=== PATIENT | male | born 1980 | race Caucasian/White ===

== ENCOUNTER 2020-10-19 12:01 | Emergency (ER) | payer MEDICAID, OTHER ==
[~2020-10-19] VITALS: Ht 170.2 cm; Wt 77.1 kg
--- NOTE | 2020-10-19 13:08 | NUR ---
Patient is resting comfortably on gurney with eyes closed, easily arousable, respiration:easy, unlabored, even and symmetrical. Patient said that he can not provide urine sample at this time.
[2020-10-19] MEDS ORDERED: LIDOCAINE 2% (UROJET) 10 ML JELLY MM ONE ×2 (13:41→13:45)
[2020-10-19] MEDS ORDERED: MORPHINE SULFATE 4 MG/1 ML DISP.SYRIN IV ONE (13:45)
[2020-10-19] MEDS ORDERED: ONDANSETRON 4 MG/2 ML VIAL IV ONE (13:45)
[2020-10-19 14:11] LABS: HEMATOCRIT 40.2 % (36.7-47.1); MEAN CORPUSCULAR VOLUME 96.2 fL (73.0-96.2); PLATELET COUNT (AUTO) 231 K/uL (152-348)
[2020-10-19 14:19] LABS: *BILIRUBIN,URIN NEGATIVE (NEGATIVE); *BLOOD, URINE NEGATIVE (NEGATIVE); *CLARITY,URINE CLEAR (CLEAR); *COLOR,URINE YELLOW (YELLOW); *KETONES,URINE NEGATIVE (NEGATIVE); *UROBILINOGEN,URINE 0.2 E.U./dl (NORMAL); LEUKOCYTE ESTERASE ,URINE NEGATIVE (NEGATIVE); NITRITE, URINE NEGATIVE (NEGATIVE); UGLUCOSE NEGATIVE (NEGATIVE)
[2020-10-19 14:30] LABS: BACTERIA,URINE NONE SEEN /HPF (NONE SEEN); MUCUS,URINE FEW /LPF (0-FEW); RBC,URINE 0-3 /HPF (0-3); SPERM,URINE FEW /HPF (NONE SEEN); SQUAMOUS EPITHELIAL CELL,UR FEW /HPF (NONE SEEN); URINE AMORPHOUS PHOSPHATES FEW /HPF
[2020-10-19 14:30] LABS: BILIRUBIN,DIRECT 0.3 mg/dL (0.0-0.2); BILIRUBIN,TOTAL 1.4 mg/dL (0.2-1.0); POTASSIUM 3.2 mmol/L (3.5-5.1); TOTAL PROTEIN, SERUM 7.1 g/dL (6.4-8.2)
--- NOTE | 2020-10-19 14:38 | NUR ---
Patient refused in & out urine catherization as well, MD notified. Patient voided by urinal now, about 150ml dark yellow urine.
[2020-10-19] MEDS ORDERED: ONDANSETRON 4 MG/2 ML VIAL ONE (14:48)
[2020-10-19] MEDS ORDERED: MORPHINE SULFATE 4 MG/1 ML DISP.SYRIN ONE (14:48)
--- NOTE | 2020-10-19 15:12 | NUR ---
[email or web address].
--- NOTE | 2020-10-19 15:35 | NUR ---
Patient went to the bathroom and said "It came out." & MATTRESS FINISHER Ehsan notified.
--- NOTE | 2020-10-19 15:45 | NUR ---
Patient is preparing all his belongings and wants to go home. MD notified.
--- NOTE | 2020-10-19 15:47 | NUR ---
Patient discharged to home in stable condition with brisk steady gait. Written and verbal after care instructions given to patient. Patient verbalized understanding & compliance of instructions. Stressed follow up with primary doctor or return to ER for worsening s/s.
--- NOTE | 2020-10-19 15:48 | NUR ---
Patient said that his mother is picking him up and his real name is Олег and not Johnnie. ER registration staff Maicol notified.
--- NOTE | 2020-10-19 15:50 | NUR ---
Patient will wait in the waiting room for his ride with all his belongings.
--- NOTE | 2020-10-19 16:17 | NUR ---
Per hospital security officers and nursing loom fixer supervisor Elizabeth, this patient pulled the fire alarm before leaving the hospital grounds.
--- NOTE | 2020-10-19 16:22 | NUR ---
Patient came back and said that his cellphone was left behind. Room 4 search was done with ER registration staff Dat and myself. There was no cellphone seen in room 4A or 4B. Patient notified.
--- NOTE | 2020-10-19 16:26 | NUR ---
911 was called for police assistance.
== END 2020-10-19 15:48 | disposition left against medical advice (07) ==
LOC: ER 12:01
DX: T18.5XXA Foreign body in anus and rectum, initial encounter (principal); X58.XXXA Exposure to other specified factors, initial encounter; Y93.89 Activity, other specified; Y92.89 Other specified places as the place of occurrence of the external cause; E87.6 Hypokalemia; R11.10 Vomiting, unspecified; Z20.822 Contact with and (suspected) exposure to COVID-19
CPT/HCPCS: 36415; 45999; 72170; 76010; 80048; 80076; 81001; 85025; 87426; 96374; 96375; 99284; J2270; J2405; A4663; J7030